=== PATIENT | male | born 1980 | race Caucasian/White ===

== ENCOUNTER 2016-11-14 21:15 | Emergency (ER) | payer OTHER ==
[~2016-11-14] VITALS: Ht 177.8 cm; Wt 86.8 kg
[2016-11-14 21:44] VITALS: BP 107/53; PULSE 55; RESP 16; TEMP 98.3; O2SAT 95
--- NOTE | 2016-11-14 21:54 | PD ---
HPI Chief Complaint: Skin Problem Time Seen by Provider: 21:50 Travel History International Travel<30 days: No Contact w/Intl Traveler<30days: No History of Present Illness HPI 36 year old male presents to the ED for evaluation of 4 day history of pain, redness and swelling of right buttock. Patient states that he thought it might be infected pimple so he took 4 days of Bactrim that he had left over from one year ago with no improvement of symptoms. Denies improvement of symptoms with ibuprofen. Denies fever or chills. Denies chronic health problems, takes no daily medications. PFSH Past Medical History Hx Anticoagulant Therapy: No Asthma: Yes ( CHILD) Anxiety: Yes Cardiovascular Problems: No Diminished Hearing: No Pneumonia: Yes Social History Alcohol Use: No Tobacco Use: No Substance Use: No Allergies-Medications (Allergen,Severity, Reaction): Coded Allergies: Marcos-Dur (Verified Allergy, Severe, Irritability/Anxiety, 11/14/16) Phenergan (Verified Allergy, Intermediate, Rash, 11/14/16) Reported Meds & Prescriptions Reported Meds & Active Scripts Active Ibuprofen 800 Mg Tab 800 Mg PO Q8H PRN Clindamycin (Clindamycin HCl) 300 Mg Cap 300 Mg PO TID Review of Systems Except as stated in HPI: all other systems reviewed are Neg Physical Exam Narrative GENERAL: Well-nourished, well-developed nontoxic appearing white male in no acute distress. SKIN: Warm and dry. SKIN: There is an indurated area in the right lateral to the gluteal cleft which measures about 3 cm in diameter. It is fluctuant but there is no pointing or drainage. There is a zone of inflammation around it but no lymphangitis. HEAD: Normocephalic. EYES: No scleral icterus. No injection or drainage. NECK: Supple, trachea midline. No JVD or lymphadenopathy. CARDIOVASCULAR: Regular rate and rhythm without murmurs, gallops, or rubs. RESPIRATORY: Breath sounds equal bilaterally. No accessory muscle use. GASTROINTESTINAL: Abdomen soft, non-tender, nondistended. MUSCULOSKELETAL: No cyanosis, or edema. BACK: Nontender without obvious deformity. No CVA tenderness. Data Data Last Documented VS Vital Signs Date Time Temp Pulse Resp B/P Pulse Ox O2 Delivery O2 Flow Rate FiO2 11/14/16 21:44 98.3 55 16 107/53 95 Orders Tetanus/Diphtheria Tox Adult (Tetanus/Di (11/14/16 22:15) Lidocai-Epi 1%-1:100,000 Inj (Xylocaine- (11/14/16 22:15) Clindamycin (Cleocin) (11/14/16 22:15) Wound Culture And Gram Stain (11/14/16 22:16) MDM Medical Decision Making Medical Screen Exam Complete: Yes Emergency Medical Condition: Yes Differential Diagnosis Folliculitis versus abscess versus cellulitis versus sepsis versus other Narrative Course 36 year old male presents to the ED for evaluation of 4 day history of pain, redness and swelling of right buttock. Patient states that he thought it might be infected pimple so he took 4 days of Bactrim that he had left over from one year ago with no improvement of symptoms. Denies improvement of symptoms with ibuprofen. Vitals reviewed. Physical exam reveals an abscess just right lateral to the gluteal cleft. Abscess I & D was performed, see my procedure note for details. Cultures pending. Patient's tetanus immunization was updated. He was administered 5 mg Lortab. He was prescribed clindamycin 300 mg 3 times a day 7 days, first dose administered in the ED. Also prescribed a short course of anti-inflammatory medications. He is instructed to return to the ED in 2 days for packing removal and wound evaluation, keep the wound clean , dry, covered. We discussed reasons to return to the ED. He indicated understanding the instructions and is amenable to plan of care. Patient stable and discharged home. Procedures Procedure Narrative INCISION AND DRAINAGE OF ABSCESS: The area was prepped and was sterilely draped. A subcutaneous wheal of 1 % Xylocaine with a total number 3 mL was used to anesthetize the area properly. A number 11 scalpel was used to make a 1 -cm incision across the area of the abscess. The abscess was drained, complex loculations were broken down, and irrigated with normal saline. Cultures were obtained. 1/2 inch iodoform packing was placed in the wound. Sterile dressing applied. Patient advised to have packing removed in two days. Diagnosis Primary Impression: Abscess Referrals: Primary Care Physician Patient Instructions: Abscess Incision and Drainage (ED), General Instructions Additional Instructions: Rest, hydrate. Do not change the dressing for 2 days unless it becomes soaked with blood or wet. Take clindamycin as they are prescribed, even if your symptoms resolve. 800 mg ibuprofen up to 3 times a day as needed for pain. Return to the ED in 48 hours for wound recheck and packing removal. Return to the ED for any urgent or emergent medical condition. Med/Other Pt SpecificInfo: Prescription(s) given Scripts Ibuprofen 800 Mg [id number] Mg PO Q8H PRN (Pain/Inflammation) #15 TAB Ref 0 Prov:Mary Lou Navarrete DO 11/14/16 Clindamycin 300 Mg [id number] Mg PO TID #21 CAP Ref 0 Prov:Mary Lou Navarrete DO 11/14/16 Disposition: 01 DISCHARGE HOME Condition: Stable Juliette Hebert Nov 14, 2016 21:54
[2016-11-14] MEDS ORDERED: CLIN1CAP6 PO (22:04)
[2016-11-14] MEDS ORDERED: IBUP800T23 PO (22:04)
[2016-11-14] MEDS ORDERED: LIDOCAINE 1%/EPINEPHrine 1:100,000 SOLN 20 ML VIAL INFIL ONE (22:15)
[2016-11-14] MEDS ORDERED: CLINDAMYCIN 150 MG CAP PO ONE (22:15)
[2016-11-14] MEDS ORDERED: TETANUS/DIPHTHERIA TOXOID ADULT 0.5 ML VIAL IM ONE (22:15)
[2016-11-14] MEDS ORDERED: ACETAMINOPHEN/HYDROcodone 325 MG/5 MG TAB PO ONE (22:45)
== END 2016-11-14 22:55 | disposition home or self-care (01) ==
LOC: PHED 21:15 → PHEFT 22:55
DX: L02.31 Cutaneous abscess of buttock (principal); Z23 Encounter for immunization
CPT/HCPCS: 10061; 87070; 87205; 90471; 90714

== ENCOUNTER 2016-11-16 18:06 | Emergency (ER) | payer OTHER ==
[~2016-11-16] VITALS: Ht 177.8 cm; Wt 85.2 kg
[~2016-11-16 18:06] MED LIST: CLIN1CAP6 PO; IBUP800T23 PO
[2016-11-16 18:12] VITALS: BP 126/77; PULSE 54; RESP 18; TEMP 98.1; O2SAT 97
--- NOTE | 2016-11-16 18:20 | PD ---
HPI Chief Complaint: Wound/Suture/Staple Re-Check Time Seen by Provider: 18:20 Travel History International Travel<30 days: No Contact w/Intl Traveler<30days: No Traveled to known affect area: No History of Present Illness HPI 36-year-old male presents to the ED for packing removal and wound recheck. The patient was seen 11/14, diagnosed with abscess, prescribed antibiotics. He endorses compliance with antibiotics and ibuprofen. He states that he has still been having significant pain and has changed the dressing a few times. Denies fever, chills, worsening of symptoms. PFSH Past Medical History Hx Anticoagulant Therapy: No Asthma: Yes ( CHILD) Anxiety: Yes Cardiovascular Problems: No Diminished Hearing: No Pneumonia: Yes Social History Alcohol Use: No Tobacco Use: No Substance Use: No Allergies-Medications (Allergen,Severity, Reaction): Coded Allergies: Marcos-Dur (Verified Allergy, Severe, Irritability/Anxiety, 11/16/16) Phenergan (Verified Allergy, Intermediate, Rash, 11/16/16) Reported Meds & Prescriptions Reported Meds & Active Scripts Active Ibuprofen 800 Mg Tab 800 Mg PO Q8H PRN Clindamycin (Clindamycin HCl) 300 Mg Cap 300 Mg PO TID Review of Systems Except as stated in HPI: all other systems reviewed are Neg Physical Exam Narrative GENERAL: Well-nourished, well-developed nontoxic appearing white male in no acute distress.. SKIN: Warm and dry. Packing was removed from a 1 cm laceration just right lateral to the gluteal cleft. The induration is softening and the area of inflammation has decreased since last visit. HEAD: Normocephalic. EYES: No scleral icterus. No injection or drainage. NECK: Supple, trachea midline. No JVD or lymphadenopathy. CARDIOVASCULAR: Regular rate and rhythm without murmurs, gallops, or rubs. RESPIRATORY: Breath sounds equal bilaterally. No accessory muscle use. GASTROINTESTINAL: Abdomen soft, non-tender, nondistended. MUSCULOSKELETAL: No cyanosis, or edema. Patient is ambulatory and moves extremities spontaneously. BACK: Nontender without obvious deformity. No CVA tenderness. Data Data Last Documented VS Vital Signs Date Time Temp Pulse Resp B/P Pulse Ox O2 Delivery O2 Flow Rate FiO2 11/16/16 18:12 98.1 54 18 126/77 97 MDM Medical Decision Making Medical Screen Exam Complete: Yes Emergency Medical Condition: Yes Differential Diagnosis Packing removal versus abscess recheck versus cellulitis versus wound infection versus other Narrative Course 36-year-old male presents to the ED for packing removal and wound recheck. The patient was seen 11/14 by me, diagnosed with abscess, prescribed antibiotics. He endorses compliance with antibiotics and ibuprofen. He states that he has still been having significant pain and has changed the dressing a few times. Denies fever, chills, worsening of symptoms. Physical exam reveals a well- appearing white male in no acute distress.Packing was removed from a 1 cm laceration just right lateral to the gluteal cleft. The induration is softening and the area of inflammation has decreased since last visit. A clean , dry dressing was applied. Patient was given detailed wound care instructions , the need for continuation of the antibiotics was reinforced. He is instructed to follow-up with the primary care provider. He indicated understanding of instructions and is amenable to plan of care. This patient is stable and discharged home. Diagnosis Primary Impression: Encounter for removal of abscess packing Referrals: Primary Care Physician Patient Instructions: Abscess Follow-up (ED), General Instructions Additional Instructions: Rest, hydrate. You may bathe normally. Do not submerge the wound. After bathing pat of wound dry. Allow the wound to air dry for 10-15 minutes. Apply a thin layer of antibiotic ointment and a clean, dry dressing. Take the antibiotics as they are prescribed, even if your symptoms resolve. Continue 800 mg ibuprofen as prescribed, as needed Follow-up with your primary care provider. Return to the ED for any urgent or emergent medical condition. Med/Other Pt SpecificInfo: Prescription(s) given Disposition: DISCHARGE HOME Condition: Stable Juliette Hebert Nov 16, 2016 18:20
== END 2016-11-16 18:41 | disposition home or self-care (01) ==
LOC: PHEFT 18:06
DX: L02.91 Cutaneous abscess, unspecified (principal); Z48.01 Encounter for change or removal of surgical wound dressing
CPT/HCPCS: 99281

== ENCOUNTER 2017-01-05 13:56 | Emergency (ER) | payer OTHER ==
[~2017-01-05] VITALS: Ht 177.8 cm; Wt 81.0 kg
[2017-01-05 14:07] VITALS: BP 119/79; PULSE 58; RESP 16; TEMP 97.8; O2SAT 99
[2017-01-05] MEDS ORDERED: DICYCLOMINE HCL 10 MG CAP PO ONE (14:30)
[2017-01-05] MEDS ORDERED: SODIUM CHLOR 0.9% 1000 ML INJ 1,000 ML IV ONE (14:30)
[2017-01-05 14:58] LABS: AUTOMATED NEUTROPHIL # 3.5 TH/MM3 (1.8-7.7); BASOPHIL # 0.1 TH/MM3 (0-0.2); BASOPHIL % 0.8 % (0.0-2.0); EOSINOPHIL # 0.2 TH/MM3 (0-0.4); EOSINOPHIL % 2.6 % (0.0-4.0); HEMATOCRIT 46.4 % (39.0-51.0); HEMO FLAGS DIFF FINAL; LYMPH % 35.3 % (9.0-44.0); LYMPHOCYTE # 2.3 TH/MM3 (1.0-4.8); MEAN CELL VOLUME 90.2 FL (80.0-100.0); MEAN CORPUSCULAR HEMOGLOBIN 29.5 PG (27.0-34.0); MEAN CORPUSCULAR HGB CONC 32.8 % (32.0-36.0); MONO % 7.2 % (0.0-8.0); NEUT % 54.1 % (16.0-70.0); PLATELET COUNT 222 TH/MM3 (150-450); RED BLOOD COUNT 5.14 MIL/MM3 (4.50-5.90); RED CELL DISTRIBUTION WIDTH 13.2 % (11.6-17.2); WHITE BLOOD COUNT 6.6 TH/MM3 (4.0-11.0)
[2017-01-05 15:15] LABS: CHLORIDE 102 MEQ/L (98-107); POTASSIUM 3.8 MEQ/L (3.5-5.1); SODIUM (NA) 142 MEQ/L (136-145)
[2017-01-05 15:19] LABS: ANION GAP 7 MEQ/L (5-15); BICARBONATE 33.1 MEQ/L (21.0-32.0); BLOOD UREA NITROGEN 18 MG/DL (7-18)
[2017-01-05 15:20] LABS: APTT (PATIENT) 27.7 SEC (24.3-30.1); PROTHROMBIN TIME - PATIENT 11.2 SEC (9.8-11.6)
[2017-01-05 15:22] LABS: ALT (GPT) 19 U/L (12-78); AST (GOT) 20 U/L (15-37); GLOMERULAR FILTRATION RATE 69 ML/MIN (>89)
[2017-01-05 15:23] LABS: TOTAL BILIRUBIN ADULT 1.2 MG/DL (0.2-1.0)
[2017-01-05 15:24] LABS: ALKALINE PHOSPHATASE 73 U/L (45-117)
[2017-01-05 15:30] VITALS: BP 107/54; PULSE 54; RESP 16; O2SAT 98
[2017-01-05 16:30] VITALS: BP 116/64; PULSE 54; RESP 16; O2SAT 98
[2017-01-05] MEDS ORDERED: IOHEXOL 350 MG/ML 10 ML VIAL (for RAD DIAG) IV ONE (17:16)
--- NOTE | 2017-01-05 17:59 | RADHPO ---
EXAM DATE/TIME: 01/05/2017 16:58 [facility] COMPARISON: No previous studies available for comparison. INDICATIONS : Abdominal pain and nausea for 6 months, now with dark bloody stools. IV CONTRAST: 90 cc Omnipaque 350 (iohexol) IV ORAL CONTRAST: No oral contrast ingested. RADIATION DOSE: 9.87 CTDIvol (mGy) MEDICAL HISTORY : None SURGICAL HISTORY : None. ENCOUNTER: Initial ACUITY: 4 - 6 months PAIN SCALE: 4/10 LOCATION: abdomen TECHNIQUE: Volumetric scanning of the abdomen and pelvis was performed. Using automated exposure control and ad justment of the mA and/or kV according to patient size, radiation dose was kept as low as reasonably achievable to obtain optimal diagnostic quality images. FINDINGS: Lung bases are clear. No significant abnormality in the liver, spleen, adrenals, kidneys or pancreas. There is no free fluid. No bowel obstruction. There is mild constipation especially rectal. CONCLUSION: 1. No acute findings. Mild constipation. Duran Arellano MD on January 05, 2017 at 17:51 Board Certified Radiologist. This report was verified electronically.
[2017-01-05 18:12] VITALS: BP 116/68; PULSE 56; RESP 16; O2SAT 98
[2017-01-05] MEDS ORDERED: BENT20TA PO (18:53)
--- NOTE | 2017-01-05 18:53 | PD ---
HPI Chief Complaint: GI Complaint Time Seen by Provider: 14:17 Travel History International Travel<30 days: No Contact w/Intl Traveler<30days: No Traveled to known affect area: No History of Present Illness HPI Patient is a 36 year old male who comes in after having several episodes of blood in his stool. He says for the past 2 weeks he has had abdominal cramping, sometimes severe, keeping him up at night. He says recently he has noticed his stool to be "maroon" in color and he says he seems to be passing tissue with his stool. He says his business development consultant was recently diagnosed with ulcerative colitis and he was worried he may have the same thing. He denies vomiting. He denies fever or chills. He denies dizziness or SOB. PFSH Past Medical History Hx Anticoagulant Therapy: No Asthma: Yes ( CHILD) Anxiety: Yes Cardiovascular Problems: No Diminished Hearing: No Gastrointestinal Disorders: Yes (HEMORRHOIDS, CHILD) Pneumonia: Yes Influenza Vaccination: No Social History Alcohol Use: No Tobacco Use: No Substance Use: No Allergies-Medications (Allergen,Severity, Reaction): Coded Allergies: Marcos-Dur (Verified Allergy, Severe, Irritability/Anxiety, 01/05/17) Phenergan (Verified Allergy, Intermediate, Rash, 01/05/17) PT DENIES ALLERGY Reported Meds & Prescriptions Reported Meds & Active Scripts Active Bentyl (Dicyclomine HCl) 20 Mg Tab 20 Mg PO TID Review of Systems Except as stated in HPI: all other systems reviewed are Neg General / Constitutional: No: Fever, Chills HENT: No: Headaches, Lightheadedness Cardiovascular: No: Chest Pain or Discomfort Respiratory: No: Shortness of Breath Gastrointestinal: Positive: Abdominal Pain, No: Nausea, Vomiting Genitourinary: No: Dysuria Musculoskeletal: No: Myalgias, Weakness Skin: No Rash, No Change in Pigmentation Neurologic: No: Weakness, Dizziness Physical Exam Narrative GENERAL: Awake and alert, no acute distress. SKIN: Focused skin assessment warm/dry. HEAD: Atraumatic. Normocephalic. EYES: Pupils equal and round. No scleral icterus. ENT: Mucous membranes pink and moist. NECK: Trachea midline. No JVD. CARDIOVASCULAR: Regular rate and rhythm. No murmur appreciated. RESPIRATORY: No accessory muscle use. Clear to auscultation. Breath sounds equal bilaterally. GASTROINTESTINAL: Abdomen soft, nondistended. Mild tenderness to palpation, no rebound or guarding. RECTAL: Performed in the presence of nurse Madelyn. No hemorrhoids or masses. Brown stool MUSCULOSKELETAL: No obvious deformities. No clubbing. No cyanosis. No edema. NEUROLOGICAL: Awake and alert. No obvious cranial nerve deficits. Motor grossly within normal limits. Normal speech. PSYCHIATRIC: Appropriate mood and affect; insight and judgment normal. Data Data Last Documented VS Vital Signs Date Time Temp Pulse Resp B/P Pulse Ox O2 Delivery O2 Flow Rate FiO2 01/05/17 18:12 56 16 116/68 98 Room Air 01/05/17 14:07 97.8 Orders Complete Blood Count With Diff (01/05/17 14:30) Comprehensive Metabolic Panel (01/05/17 14:30) Act Partial Throm Time (Ptt) (01/05/17 14:30) Prothrombin Time / Inr (Pt) (01/05/17 14:30) Ct Abd/Pel W Iv Contrast(Rout) (01/05/17 ) Sodium Chlor 0.9% 1000 Ml Inj (Ns 1000 M (01/05/17 14:30) Dicyclomine (Bentyl) (01/05/17 14:30) Iohexol 350 Inj (Omnipaque 350 Inj) (01/05/17 17:16) Labs Laboratory Tests Test 01/05/17 14:45 White Blood Count 6.6 TH/MM3 Red Blood Count 5.14 MIL/MM3 Hemoglobin 15.2 GM/DL Hematocrit 46.4 % Mean Corpuscular Volume 90.2 FL Mean Corpuscular Hemoglobin 29.5 PG Mean Corpuscular Hemoglobin 32.8 % Concent Red Cell Distribution Width 13.2 % Platelet Count 222 TH/MM3 Mean Platelet Volume 8.7 FL Neutrophils (%) (Auto) 54.1 % Lymphocytes (%) (Auto) 35.3 % Monocytes (%) (Auto) 7.2 % Eosinophils (%) (Auto) 2.6 % Basophils (%) (Auto) 0.8 % Neutrophils # (Auto) 3.5 TH/MM3 Lymphocytes # (Auto) 2.3 TH/MM3 Monocytes # (Auto) 0.5 TH/MM3 Eosinophils # (Auto) 0.2 TH/MM3 Basophils # (Auto) 0.1 TH/MM3 CBC Comment DIFF FINAL Differential Comment Prothrombin Time 11.2 SEC Prothromb Time International 1.0 RATIO Ratio Activated Partial 27.7 SEC Thromboplast Time Sodium Level 142 MEQ/L Potassium Level 3.8 MEQ/L Chloride Level 102 MEQ/L Carbon Dioxide Level 33.1 MEQ/L Anion Gap 7 MEQ/L Blood Urea Nitrogen 18 MG/DL Creatinine 1.20 MG/DL Estimat Glomerular Filtration 69 ML/MIN Rate Random Glucose 90 MG/DL Calcium Level 9.0 MG/DL Total Bilirubin 1.2 MG/DL Aspartate Amino Transf 20 U/L (AST/SGOT) Alanine Aminotransferase 19 U/L (ALT/SGPT) Alkaline Phosphatase 73 U/L Total Protein 8.7 GM/DL Albumin 4.4 GM/DL [facility] Medical Decision Making Medical Screen Exam Complete: Yes Emergency Medical Condition: Yes Medical Record Reviewed: Yes Differential Diagnosis Colitis versus diverticulosis versus hemorrhoids Narrative Course Patient is a 36-year-old male comes in complaining of blood in his stool and abdominal cramping. It shows some mild abdominal tenderness. IV established, labs sent. Labs show no acute abnormalities, hemoglobin is 15.2. Stool is currently brown and negative for blood. No hemorrhoids seen on rectal exam. CT abdomen and pelvis performed shows no acute abnormalities. Patient advised he should follow-up with gastroenterology for further management. Advised to return to the ED as needed for any worsening symptoms. Given Bentyl, which she says helped his symptoms. Given a prescription for this. Last 24 hours Impressions Abdomen/Pelvis CT 01/05/17 0000 Signed Impressions: Service Date/Time: Thursday, January 05, 2017 16:58 - CONCLUSION: 1. No acute findings. Mild constipation. Duran Arellano MD [facility] Point of Care Internal Pos. & Neg. Controls: Passed Fecal Specimen Occult Blood: Negative Diagnosis Primary Impression: Abdominal cramping Additional Impression: Dark stools Patient Instructions: Acute Abdominal Pain (ED), General Instructions Additional Instructions: Follow up with gastroenterology. Eat bland foods and drink plenty of fluids. Return to the ED as needed for any worsening symptoms. Scripts Dicyclomine (Bentyl)20 Mg Tab20 Mg PO TID #20 TAB Ref 0 Prov:Katarzyna Elaine MD 01/05/17 Disposition: DISCHARGE HOME Condition: Stable Katarzyna Elaine MD January 05, 2017 18:53
== END 2017-01-05 19:19 | disposition home or self-care (01) ==
LOC: PHED 13:56
DX: R10.9 Unspecified abdominal pain (principal)
CPT/HCPCS: 74177; 80053; 85025; 85610; 85730; 96360; 96361; 99285; J7030; Q9967

== ENCOUNTER 2018-01-27 17:16 | Emergency (ER) | payer OTHER ==
[~2018-01-27] VITALS: Ht 175.3 cm; Wt 88.0 kg
[~2018-01-27 17:16] MED LIST changes: +BENT20TA PO; -CLIN1CAP6 PO; -IBUP800T23 PO
[2018-01-27 17:20] VITALS: BP 152/76; PULSE 56; RESP 16; TEMP 97.9; O2SAT 98
[2018-01-27] MEDS ORDERED: ERYTOIN10 RIGHT EYE (18:17)
--- NOTE | 2018-01-27 18:18 | PD ---
HPI Chief Complaint: Eye Problems/Injury Time Seen by Provider: 18:03 Travel History International Travel<30 days: No Contact w/Intl Traveler<30days: No Traveled to known affect area: No History of Present Illness HPI 37-year-old male here with a small corneal foreign body located at 3:00 over the rim of the iris. He was originally seen in urgent care clinic earlier today where they attempted to remove the foreign body unsuccessfully. He reports foreign body has been in the eye for approximately 3-4 days. He was grinding metal without wearing proper safety glasses. He has had mild eye irritation for the last several days. Denies visual disturbance. Symptom severity is moderate. No aggravating or alleviating factors. PFSH Past Medical History Hx Anticoagulant Therapy: No Asthma: Yes ( CHILD) Anxiety: Yes Cardiovascular Problems: No Diminished Hearing: No Gastrointestinal Disorders: Yes (HEMORRHOIDS, CHILD) Pneumonia: Yes Social History Alcohol Use: No Tobacco Use: No Substance Use: No Allergies-Medications (Allergen,Severity, Reaction): Coded Allergies: theophylline (Unverified Allergy, Severe, Irritability/Anxiety, 01/27/18) promethazine (Unverified Allergy, Intermediate, Rash, 01/27/18) PT DENIES ALLERGY Reported Meds & Prescriptions Reported Meds & Active Scripts Active Tylenol-Codeine #3 (Acetaminophen-Codeine) 300-30 mg Tab 1 Tab PO Q6H PRN Erythromycin Opth Oint 5 Mg/Gm Oint 1 Applic RIGHT EYE QID Review of Systems Except as stated in HPI: all other systems reviewed are Neg General / Constitutional: No: Fever Eyes: Positive: Redness, Foreign Body Sensation Physical Exam Narrative GENERAL: Alert and well-appearing 37-year-old male SKIN: Warm and dry. HEAD: Normocephalic. EYES: Right eye is mildly injected. Pupils equal, round, reactive to light. No hyphema. EOMs intact. Tiny circular foreign body located at 3:00 over the iris rim. Fluorescein dye uptake at the site of the foreign body. No other abrasion seen. NECK: Supple, trachea midline. No JVD or lymphadenopathy. CARDIOVASCULAR: Regular rate and rhythm without murmurs, gallops, or rubs. RESPIRATORY: Breath sounds equal bilaterally. No accessory muscle use. Data Data Last Documented VS Vital Signs Date Time Temp Pulse Resp B/P (MAP) Pulse Ox O2 Delivery O2 Flow Rate FiO2 5/28/18 17:20 97.9 56 16 152/76 (101) 98 Orders Orders Erythromycin 0.5% Opth Oint (Ilotycin 0. (01/27/18 18:30) Ed Discharge Order (01/27/18 18:18) [facility] Medical Decision Making Medical Screen Exam Complete: Yes Emergency Medical Condition: Yes Differential Diagnosis Retained corneal foreign body, corneal ulcer, corneal abrasion Narrative Course 37-year-old male here with a small corneal foreign body located at 3:00 over the rim of the iris. He was originally seen in urgent care clinic earlier today where they attempted to remove the foreign body unsuccessfully. During my exam the foreign bodies appear slightly embedded and he will need it removed by ophthalmology. There is no ophthalmology coverage at this time. He reports he is able to follow-up with an medical billing coordinator tomorrow. He will be started on erythromycin ophthalmic ointment. With strict return precautions. Diagnosis Primary Impression: Corneal foreign body Qualified Codes: T15.01XA - Foreign body in cornea, right eye, initial encounter Referrals: Raegan Curtis MDdirector of digital platforms Additional Instructions: Antibiotic ointment to the right eye as directed. Call to schedule a follow-up appointment with medical billing coordinator tomorrow. Return if you have new or worsening symptoms as we discussed Scripts Acetaminophen-Codeine (Tylenol-Codeine #3) 300-30 mg Tab 1 TAB PO Q6H Y for PAIN, #8 TAB 0 Refills Prov: Anastacia Romero 01/27/18 Erythromycin Opth Oint (Erythromycin Opth Oint) 5 Mg/Gm Oint 1 APPLIC RIGHT EYE QID for Infection, #1 TUBE 0 Refills Prov: Anastacia Romero 01/27/18 Disposition: 01 DISCHARGE HOME Condition: Stable Anastacia Romero January 27, 2018 18:18
[2018-01-27] MEDS ORDERED: ERYTHROMYCIN 0.5% OPTH OINT 3.5 GM TUBO RIGHT EYE ONE (18:30)
[2018-01-27] MEDS ORDERED: TYLETAB34 PO (18:42)
== END 2018-01-27 18:49 | disposition home or self-care (01) ==
LOC: PHEFT 17:16
DX: T15.01XA Foreign body in cornea, right eye, initial encounter (principal); F41.9 Anxiety disorder, unspecified; J45.909 Unspecified asthma, uncomplicated
CPT/HCPCS: 99283